=== PATIENT | male | born 1935 | race Caucasian/White ===

== ENCOUNTER 2018-04-04 16:15 | Emergency (ER) | payer MEDICARE, OTHER ==
[~2018-04-04] VITALS: Ht 1670.2 cm; Wt 76.8 kg
[2018-04-04 16:52] LABS: BASOPHILS % (AUTO) 0.2 % (0-1); EOSINOPHILS # (AUTO) 0.1 X10'3 (0-0.9); EOSINOPHILS % (AUTO) 1.4 % (0-6); HEMATOCRIT 40.3 % (42.0-52.0); HEMOGLOBIN 14.2 g/dl (14.0-17.9); LYMPHOCYTES # (AUTO) 1.6 X10'3 (1.1-4.8); LYMPHOCYTES % (AUTO) 17.7 % (21-51); MEAN CORPUSCULAR HEMOGLOBIN 31.8 PG (27.0-31.0); MEAN CORPUSCULAR HGB CONC 35.2 % (33.0-36.5); MEAN CORPUSCULAR VOLUME 90.5 FL (78-98); MEAN PLATELET VOLUME 7.8 FL (7.4-10.4); MONOCYTES # (AUTO) 0.5 X10'3 (0-0.9); NEUTROPHILS # (AUTO) 6.7 X10'3 (1.8-7.7); NEUTROPHILS % (AUTO) 74.7 % (42-75); PLATELET COUNT 192 X10'3 (140-440); RED BLOOD COUNT 4.46 X10'6 (4.70-6.10); RED CELL DISTRIBUTION WIDTH 13.7 % (11.5-14.5)
[2018-04-04 17:04] LABS: ALANINE AMINOTRANSFERASE 24 U/L (12-78); ALBUMIN 3.9 G/DL (3.4-5.0); ALBUMIN/GLOBULIN RATIO 1.1 (1.1-1.5); ALKALINE PHOSPHATASE 84 IU/L (46-116); ANION GAP 14 (8-16); ASPARTATE AMINO TRANSFERASE 16 U/L (10-37); BILIRUBIN,TOTAL 0.8 MG/DL (0.1-1.0); BLOOD UREA NITROGEN 39 MG/DL (7-18); BUN/CREATININE RATIO 39.4 (5.4-32.0); CALCIUM 9.3 MG/DL (8.5-10.1); CHLORIDE 108 MMOL/L (99-107); CREATININE 0.99 MG/DL (0.60-1.10); GLUCOSE 100 MG/DL (70-104); POTASSIUM 3.5 MMOL/L (3.5-5.1); SODIUM 143 MMOL/L (135-145); TOTAL CARBON DIOXIDE 21.5 MMOL/L (24-32); TOTAL PROTEIN 7.3 G/DL (6.4-8.2); eGFR 73 ML/MIN
[2018-04-04 17:15] LABS: ETHANOL < 0.010 GM/DL (0.0-0.010); MAGNESIUM 2.1 MG/DL (1.5-2.4)
[2018-04-04 19:31] LABS: URINE AMPHETAMINE SCREEN NEGATIVE (Neg); URINE BARBITUATE SCREEN NEGATIVE (Neg); URINE BENZODIAZEPINES SCREEN NEGATIVE (Neg); URINE CANNABINOID SCREEN NEGATIVE (Neg); URINE COCAINE SCREEN NEGATIVE (Neg); URINE METHADONE SCREEN NEGATIVE (Neg); URINE OPIATE SCREEN NEGATIVE (Neg); URINE PHENCYCLIDINE SCREEN NEGATIVE (Neg)
[2018-04-04 19:50] LABS: CLARITY,URINE CLEAR (Clear); COLOR,URINE YELLOW (Yellow); PH,URINE 5.5 (4.8-8.0); PROTEIN,URINE TRACE mg/dl (Neg); UA COLLECTION TYPE CLN CATCH MIDSTREAM
[2018-04-04 19:51] LABS: GLUCOSE, URINE NEGATIVE (Neg); NITRITES, URINE NEGATIVE (Neg)
[2018-04-04 19:52] LABS: BACTERIA,URINE NONE SEEN /HPF (Neg); RBC,URINE 0-2 /HPF (0-2); SQUAMOUS EPITHELIAL CELL,UR NONE SEEN /LPF (FEW); WBC,URINE 0-4 /HPF (0-4)
[2018-04-04 20:09] LABS: OCCULT BLOOD,URINE NEGATIVE (Neg); UROBILINOGEN,URINE 0.2 E.U/dL (0.2-1.0)
[2018-04-04 20:10] LABS: KETONES,URINE 15 mg/dl (Neg); LEUKOCYTE ESTERASE ,URINE NEGATIVE (Neg)
[2018-04-04] MEDS ORDERED: cloNIDine 0.1 mg tablet PO ONE (23:05)
[2018-04-05 05:47] VITALS: BP 157/75
[2018-04-06] MEDS ORDERED: NO HOME MEDS (15:26)
== END 2018-04-05 15:54 ==
LOC: ER 16:17
DX: R44.3 Hallucinations, unspecified (principal); R41.82 Altered mental status, unspecified; Z73.6 Limitation of activities due to disability; Z88.0 Allergy status to penicillin; Z60.2 Problems related to living alone
CPT/HCPCS: 36415; 70450; 71045; 80053; 80305; 80320; 81001; 83735; 84443; 84484; 85025; 93005; 99285

== ENCOUNTER 2018-04-05 13:30 | Inpatient (IN) | payer MEDICARE, OTHER ==
[~2018-04-05] VITALS: Ht 175.3 cm; Wt 59.9 kg
[2018-04-05] MEDS ORDERED: pneumococcal 23-VAL P-sac vacc 25 mcg/0.5ml vial IMVAC ONE (17:00)
[2018-04-05] MEDS ORDERED: magnesium hydroxide 30ml (MOM) UD suspension PO PRN (17:40)
[2018-04-05] MEDS ORDERED: acetaminophen 325mg tablet PO PRN ×2 (17:40)
[2018-04-05] MEDS ORDERED: mag hydrox/Alum hydrox/simeth 30ml oral suspension PO PRN (17:40)
[2018-04-05 20:00] VITALS: BP 166/73
[2018-04-06 08:00] VITALS: BP 169/93
[2018-04-06 08:27] LABS: CHOL/HDL RATIO 2.9 (0.00-4.99); CHOLESTEROL 144 MG/DL (0-200); HDL CHOLESTEROL 50 MG/DL (35-60); LDL CHOLESTEROL 85 MG/DL (50-100); TRIGLYCERIDES 84 MG/DL (20-135)
[2018-04-06 08:34] LABS: HEMOGLOBIN A1C 5.5 % (4.5-6.2)
[2018-04-06] MEDS ORDERED: NO HOME MEDS (15:26)
[2018-04-06] MEDS: lisinopril 20mg tablet PO SCH (19:15)
[2018-04-06 20:56] VITALS: BP 173/77
[2018-04-06 21:00] VITALS: BP 140/60
[2018-04-07 08:00] VITALS: BP 153/77
[2018-04-07] MEDS: lisinopril 20mg tablet PO SCH (08:17)
[2018-04-07 19:00] VITALS: BP 130/61
[2018-04-08 08:00] VITALS: BP 155/75
[2018-04-08] MEDS: lisinopril 20mg tablet PO SCH (08:18)
[2018-04-08 19:00] VITALS: BP 193/86
[2018-04-08 19:30] VITALS: BP 145/70
[2018-04-08] MEDS: latanoprost 0.005% 2.5ml ophthalmic drops EACHEYE SCH (20:53)
[2018-04-09] MEDS: lisinopril 20mg tablet PO SCH (07:24)
[2018-04-09 08:00] VITALS: BP 171/81
[2018-04-09 19:30] VITALS: BP 182/75
[2018-04-09] MEDS: cloNIDine 0.1 mg tablet PO PRN (20:24)
[2018-04-09] MEDS: latanoprost 0.005% 2.5ml ophthalmic drops EACHEYE SCH (20:25)
[2018-04-09 20:41] LABS: ALANINE AMINOTRANSFERASE 27 U/L (12-78); ALKALINE PHOSPHATASE 72 IU/L (46-116); ANION GAP 7 (8-16); ASPARTATE AMINO TRANSFERASE 11 U/L (10-37); BILIRUBIN,TOTAL 0.3 MG/DL (0.1-1.0); BLOOD UREA NITROGEN 32 MG/DL (7-18); BUN/CREATININE RATIO 30.8 (5.4-32.0); CALCIUM 8.6 MG/DL (8.5-10.1); CHLORIDE 108 MMOL/L (99-107); CREATININE 1.04 MG/DL (0.60-1.10); GLUCOSE 93 MG/DL (70-104); SODIUM 141 MMOL/L (135-145); TOTAL CARBON DIOXIDE 25.6 MMOL/L (24-32); TOTAL PROTEIN 6.1 G/DL (6.4-8.2); eGFR 69 ML/MIN
[2018-04-10 08:00] VITALS: BP 124/72
[2018-04-10] MEDS: lisinopril 20mg tablet PO SCH (08:01)
[2018-04-10 20:21] VITALS: BP 167/79
[2018-04-10] MEDS: latanoprost 0.005% 2.5ml ophthalmic drops EACHEYE SCH (20:43)
[2018-04-11 08:00] VITALS: BP 138/68
[2018-04-11] MEDS: lisinopril 20mg tablet PO SCH (08:13)
[2018-04-11 20:00] VITALS: BP 148/80
[2018-04-11] MEDS: latanoprost 0.005% 2.5ml ophthalmic drops EACHEYE SCH (21:01)
[2018-04-12 08:00] VITALS: BP 168/78
[2018-04-12] MEDS: lisinopril 20mg tablet PO SCH (08:01)
[2018-04-12 20:00] VITALS: BP 136/67
[2018-04-12] MEDS: latanoprost 0.005% 2.5ml ophthalmic drops EACHEYE SCH (21:25)
[2018-04-13 07:58] VITALS: BP 144/73
[2018-04-13] MEDS: lisinopril 20mg tablet PO SCH (08:00)
[2018-04-13 20:00] VITALS: BP 128/62
[2018-04-13] MEDS: latanoprost 0.005% 2.5ml ophthalmic drops EACHEYE SCH (21:16)
[2018-04-14 08:00] VITALS: BP 158/88
[2018-04-14 08:33] LABS: BASOPHILS % (AUTO) 0.4 % (0-1); EOSINOPHILS # (AUTO) 0.2 X10'3 (0-0.9); EOSINOPHILS % (AUTO) 2.7 % (0-6); HEMATOCRIT 39.3 % (42.0-52.0); LYMPHOCYTES # (AUTO) 2.1 X10'3 (1.1-4.8); LYMPHOCYTES % (AUTO) 26.7 % (21-51); MEAN CORPUSCULAR HEMOGLOBIN 33.8 PG (27.0-31.0); MEAN CORPUSCULAR HGB CONC 35.7 % (33.0-36.5); MEAN CORPUSCULAR VOLUME 94.7 FL (78-98); MONOCYTES # (AUTO) 0.7 X10'3 (0-0.9); MONOCYTES % (AUTO) 9.1 % (2-12); NEUTROPHILS # (AUTO) 4.9 X10'3 (1.8-7.7); NEUTROPHILS % (AUTO) 61.1 % (42-75); PLATELET COUNT 192 X10'3 (140-440); RED BLOOD COUNT 4.15 X10'6 (4.70-6.10); RED CELL DISTRIBUTION WIDTH 13.8 % (11.5-14.5)
[2018-04-14 08:54] LABS: ALANINE AMINOTRANSFERASE 26 U/L (12-78); ALBUMIN 3.1 G/DL (3.4-5.0); ALKALINE PHOSPHATASE 73 IU/L (46-116); ANION GAP 4 (8-16); ASPARTATE AMINO TRANSFERASE 14 U/L (10-37); BILIRUBIN,TOTAL 0.4 MG/DL (0.1-1.0); BLOOD UREA NITROGEN 35 MG/DL (7-18); CALCIUM 8.8 MG/DL (8.5-10.1); CHLORIDE 108 MMOL/L (99-107); CREATININE 0.92 MG/DL (0.60-1.10); GLUCOSE 90 MG/DL (70-104); POTASSIUM 4.3 MMOL/L (3.5-5.1); SODIUM 141 MMOL/L (135-145); TOTAL CARBON DIOXIDE 28.9 MMOL/L (24-32); TOTAL PROTEIN 6.3 G/DL (6.4-8.2); eGFR 79 ML/MIN
[2018-04-14] MEDS: amLODIPine 2.5mg tablet PO SCH (08:55)
[2018-04-14] MEDS: lisinopril 20mg tablet PO SCH (08:55)
[2018-04-14 20:00] VITALS: BP 120/59
[2018-04-14] MEDS: latanoprost 0.005% 2.5ml ophthalmic drops EACHEYE SCH (20:12)
[2018-04-14] MEDS: cloNIDine 0.1 mg tablet PO PRN (20:12)
[2018-04-15 08:00] VITALS: BP 131/64
[2018-04-15] MEDS: amLODIPine 2.5mg tablet PO SCH (08:11)
[2018-04-15] MEDS: lisinopril 20mg tablet PO SCH (08:11)
[2018-04-15 20:05] VITALS: BP 142/64
[2018-04-15] MEDS: latanoprost 0.005% 2.5ml ophthalmic drops EACHEYE SCH (20:09)
[2018-04-16] MEDS: amLODIPine 2.5mg tablet PO SCH (07:56)
[2018-04-16] MEDS: lisinopril 20mg tablet PO SCH (07:56)
[2018-04-16 08:00] VITALS: BP 135/77
[2018-04-16 11:43] LABS: ALANINE AMINOTRANSFERASE 42 U/L (12-78); ALBUMIN 3.1 G/DL (3.4-5.0); ALBUMIN/GLOBULIN RATIO 0.9 (1.1-1.5); ALKALINE PHOSPHATASE 72 IU/L (46-116); ANION GAP 5 (8-16); ASPARTATE AMINO TRANSFERASE 22 U/L (10-37); BILIRUBIN,TOTAL 0.4 MG/DL (0.1-1.0); BLOOD UREA NITROGEN 37 MG/DL (7-18); BUN/CREATININE RATIO 40.2 (5.4-32.0); CALCIUM 8.7 MG/DL (8.5-10.1); CHLORIDE 106 MMOL/L (99-107); CREATININE 0.92 MG/DL (0.60-1.10); GLUCOSE 66 MG/DL (70-104); POTASSIUM 4.1 MMOL/L (3.5-5.1); SODIUM 139 MMOL/L (135-145); TOTAL CARBON DIOXIDE 27.9 MMOL/L (24-32); TOTAL PROTEIN 6.4 G/DL (6.4-8.2); eGFR 79 ML/MIN
[2018-04-16 19:27] VITALS: BP 129/66
[2018-04-16] MEDS: latanoprost 0.005% 2.5ml ophthalmic drops EACHEYE SCH (20:16)
[2018-04-17] MEDS: amLODIPine 2.5mg tablet PO SCH (07:34)
[2018-04-17] MEDS: lisinopril 20mg tablet PO SCH (07:34)
[2018-04-17 08:00] VITALS: BP 146/77
[2018-04-17 19:51] VITALS: BP 158/68
[2018-04-17] MEDS: latanoprost 0.005% 2.5ml ophthalmic drops EACHEYE SCH (21:03)
[2018-04-18 08:00] VITALS: BP 141/83
[2018-04-18] MEDS: lisinopril 20mg tablet PO SCH (08:36)
[2018-04-18] MEDS: amLODIPine 2.5mg tablet PO SCH (08:36)
[2018-04-18 20:04] VITALS: BP 155/72
[2018-04-18] MEDS: latanoprost 0.005% 2.5ml ophthalmic drops EACHEYE SCH (21:09)
[2018-04-19 08:00] VITALS: BP 136/76
[2018-04-19] MEDS: lisinopril 20mg tablet PO SCH (08:10)
[2018-04-19] MEDS: amLODIPine 2.5mg tablet PO SCH (08:10)
[2018-04-19 19:57] VITALS: BP 161/68
[2018-04-19] MEDS: latanoprost 0.005% 2.5ml ophthalmic drops EACHEYE SCH (21:12)
[2018-04-20] MEDS: amLODIPine 5mg tablet PO SCH (08:34)
[2018-04-20] MEDS: lisinopril 20mg tablet PO SCH (08:34)
[2018-04-20 08:50] VITALS: BP 135/75
[2018-04-20 19:15] VITALS: BP 105/69
[2018-04-20] MEDS: latanoprost 0.005% 2.5ml ophthalmic drops EACHEYE SCH (20:05)
[2018-04-21] MEDS: amLODIPine 5mg tablet PO SCH (08:31)
[2018-04-21] MEDS: lisinopril 20mg tablet PO SCH (08:32)
[2018-04-21 08:35] VITALS: BP 152/82
[2018-04-21] MEDS ORDERED: AMLO5TAB16 PO (13:20)
[2018-04-21] MEDS ORDERED: LISI-600 PO (13:20)
[2018-04-21] MEDS ORDERED: XAL0.005OS EACHEYE (13:20)
== END 2018-04-21 14:54 | disposition home or self-care (01) | DRG 880 ==
LOC: ADULT MH 13:30
PROVIDERS: ADMIT Psychiatry & Neurology Psychiatry; ATTEND Psychiatry & Neurology Psychiatry
DX: F05 Delirium due to known physiological condition (principal); G93.40 Encephalopathy, unspecified; Z68.1 Body mass index [BMI] 19.9 or less, adult; F32.9 Major depressive disorder, single episode, unspecified; R45.851 Suicidal ideations; G31.84 Mild cognitive impairment of uncertain or unknown etiology; I10 Essential (primary) hypertension; H40.9 Unspecified glaucoma; F41.9 Anxiety disorder, unspecified; H54.7 Unspecified visual loss; Z88.0 Allergy status to penicillin; Z79.899 Other long term (current) drug therapy; Z80.6 Family history of leukemia
CPT/HCPCS: 36415; 70544; 70551; 80053; 80061; 82140; 83036; 85025; 87070; 90732

== ENCOUNTER 2018-11-08 09:46 | Emergency (ER) | payer MEDICARE, OTHER ==
[~2018-11-08] VITALS: Ht 175.3 cm; Wt 59.0 kg
[~2018-11-08 09:46] MED LIST: AMLO5TAB16 PO; LISI-600 PO; XAL0.005OS EACHEYE
[2018-11-08 09:56] VITALS: BP 114/78
[2018-11-08 12:59] LABS: BASOPHILS % (AUTO) 0.4 % (0-1); EOSINOPHILS % (AUTO) 0.4 % (0-6); HEMATOCRIT 42.9 % (42.0-52.0); HEMOGLOBIN 14.9 g/dl (14.0-17.9); LYMPHOCYTES # (AUTO) 1.3 X10'3 (1.1-4.8); MEAN CORPUSCULAR HEMOGLOBIN 32.1 PG (27.0-31.0); MEAN CORPUSCULAR HGB CONC 34.7 g/dL (33.0-36.5); MEAN CORPUSCULAR VOLUME 92.5 FL (78-98); MONOCYTES # (AUTO) 0.7 X10'3 (0-0.9); MONOCYTES % (AUTO) 8.7 % (2-12); NEUTROPHILS # (AUTO) 6.4 X10'3 (1.8-7.7); NEUTROPHILS % (AUTO) 75.5 % (42-75); PLATELET COUNT 204 X10'3 (140-440); RED BLOOD COUNT 4.64 X10'6 (4.70-6.10); RED CELL DISTRIBUTION WIDTH 13.7 % (11.5-14.5); WHITE BLOOD COUNT 8.4 X10'3 (4.5-11.0)
[2018-11-08 13:08] LABS: CLARITY,URINE CLEAR (Clear); COLOR,URINE YELLOW (Yellow); GLUCOSE, URINE NEGATIVE (Neg); KETONES,URINE NEGATIVE (Neg); LEUKOCYTE ESTERASE ,URINE NEGATIVE (Neg); NITRITES, URINE NEGATIVE (Neg); OCCULT BLOOD,URINE NEGATIVE (Neg); PROTEIN,URINE NEGATIVE (Neg); UROBILINOGEN,URINE 0.2 E.U/dL (0.2-1.0)
[2018-11-08 13:13] LABS: UA COLLECTION TYPE CLN CATCH MIDSTREAM
[2018-11-08 13:13] LABS: ALANINE AMINOTRANSFERASE 19 U/L (12-78); ALBUMIN 3.2 G/DL (3.4-5.0); ALBUMIN/GLOBULIN RATIO 0.9 (1.1-1.5); ALKALINE PHOSPHATASE 110 IU/L (46-116); ANION GAP 7 (8-16); ASPARTATE AMINO TRANSFERASE 15 U/L (10-37); BILIRUBIN,TOTAL 0.4 MG/DL (0.1-1.0); BLOOD UREA NITROGEN 27 MG/DL (7-18); BUN/CREATININE RATIO 27.8 (5.4-32.0); CALCIUM 8.7 MG/DL (8.5-10.1); CHLORIDE 107 MMOL/L (99-107); CREATININE 0.97 MG/DL (0.60-1.10); GLUCOSE 117 MG/DL (70-104); POTASSIUM 3.8 MMOL/L (3.5-5.1); SODIUM 143 MMOL/L (135-145); TOTAL PROTEIN 6.7 G/DL (6.4-8.2); eGFR 74 ML/MIN
[2018-11-08] MEDS ORDERED: OLAN5TAB3 PO (13:32)
== END 2018-11-08 14:10 | disposition home or self-care (01) ==
LOC: ER 09:46
DX: F03.90 Unspecified dementia, unspecified severity, without behavioral disturbance, psychotic disturbance, mood disturbance, and anxiety (principal); Z88.0 Allergy status to penicillin; Z79.899 Other long term (current) drug therapy
CPT/HCPCS: 36415; 80053; 81003; 85025; 99283

== ENCOUNTER 2018-11-11 09:28 | Emergency (ER) | payer MEDICARE, OTHER ==
[~2018-11-11] VITALS: Ht 175.3 cm; Wt 54.5 kg
[~2018-11-11 09:28] MED LIST changes: +OLAN5TAB3 PO
[2018-11-11 09:31] VITALS: BP 160/85
--- NOTE | 2018-11-11 09:45 | NUR ---
TELE-PSYCH INITIATED
[2018-11-11] MEDS ORDERED: RISP0.5T74 PO (11:25)
[2018-11-11] MEDS ORDERED: RISP1TAB13 PO (11:25)
[2018-11-11] MEDS ORDERED: ZOL50T PO (11:26)
== END 2018-11-11 11:55 | disposition home or self-care (01) ==
LOC: ER 09:29
DX: F03.90 Unspecified dementia, unspecified severity, without behavioral disturbance, psychotic disturbance, mood disturbance, and anxiety (principal); R45.1 Restlessness and agitation; Z98.890 Other specified postprocedural states; Z79.899 Other long term (current) drug therapy; Z88.0 Allergy status to penicillin
CPT/HCPCS: 99284

== ENCOUNTER 2020-12-31 09:44 | Emergency (ER) | payer MEDICARE, MEDICAID ==
[~2020-12-31] VITALS: Ht 177.8 cm; Wt 68.4 kg
[~2020-12-31 09:44] MED LIST changes: +ACET-1008 PO; -AMLO5TAB16 PO; +BISA10SU62 RC; +BRIM5DRO EACHEYE; +CALC355O3 PO; -LISI-600 PO; +LISI20TA28 PO; +MAGN400O6 PO; +MELA1TAB28 PO; +NA P133E4 RC; -OLAN5TAB3 PO; +POLY17PO10 PO; +SENN-223 PO; +TIMO5DRO32 EACHEYE; +TRAZ150T78 PO
[2020-12-31] MEDS ORDERED: levoFLOXACIN-Levaquin 750MG/D5 150 ML IV ONE (10:05)
[2020-12-31] MEDS ORDERED: normal saline 1000ML IV soln IV ONE (10:05)
[2020-12-31] MEDS ORDERED: methylPREDNISolone sod succ 125mg/2ml vial IV ONE (10:05)
[2020-12-31] MEDS ORDERED: albuterol 2.5 MG/3 ML nebule CONTNEB PRN (10:05)
[2020-12-31 10:28] LABS: ABG BASE EXCESS -0.3 mmol/L (-2.0-2.0); ABG OXYGEN SATURATION 80.9 % (94-97); ABG PCO2 (T) 29.8 mmHg (35.0-48.0); ABG PO2 (T) 41.2 mmHg (75.0-100.0); ALLEN'S TEST POSITIVE; FCOHb 0.8 % (0.0-3.9); FLOW 5 L/min; FMetHb 0.1 % (0.0-1.5); FO2Hb 80.2 % (94-97); TOTAL HEMOGLOBIN 13.9 G/dl (14.0-18.0)
[2020-12-31 11:06] LABS: BASOPHILS % (AUTO) 0.1 % (0-1); EOSINOPHILS % (AUTO) 0.1 % (0-6); HEMATOCRIT 38.5 % (42.0-52.0); HEMOGLOBIN 12.9 g/dl (14.0-17.9); LYMPHOCYTES # (AUTO) 0.9 X10'3 (1.1-4.8); LYMPHOCYTES % (AUTO) 7.4 % (21-51); MEAN CORPUSCULAR HEMOGLOBIN 29.9 PG (27.0-31.0); MEAN CORPUSCULAR HGB CONC 33.4 g/dL (33.0-36.5); MEAN CORPUSCULAR VOLUME 89.4 FL (78-98); MEAN PLATELET VOLUME 7.1 FL (7.4-10.4); MONOCYTES # (AUTO) 1.5 X10'3 (0-0.9); MONOCYTES % (AUTO) 12.1 % (2-12); NEUTROPHILS # (AUTO) 10.1 X10'3 (1.8-7.7); NEUTROPHILS % (AUTO) 80.3 % (42-75); PLATELET COUNT 254 X10'3 (140-440); RED CELL DISTRIBUTION WIDTH 13.7 % (11.5-14.5); WHITE BLOOD COUNT 12.5 X10'3 (4.5-11.0)
[2020-12-31 11:23] LABS: ALANINE AMINOTRANSFERASE 13 U/L (12-78); ALBUMIN/GLOBULIN RATIO 0.5 (1.1-1.5); ALKALINE PHOSPHATASE 70 IU/L (46-116); ANION GAP 10 (8-16); BILIRUBIN,TOTAL 0.4 MG/DL (0.1-1.0); BLOOD UREA NITROGEN 34 MG/DL (7-18); BUN/CREATININE RATIO 32.7 (5.4-32.0); CALCIUM 8.2 MG/DL (8.5-10.1); CHLORIDE 112 MMOL/L (99-107); CREATININE 1.04 MG/DL (0.60-1.10); GLUCOSE 104 MG/DL (70-104); POTASSIUM 3.5 MMOL/L (3.5-5.1); SODIUM 146 MMOL/L (135-145); TOTAL CARBON DIOXIDE 24.2 MMOL/L (24-32); TOTAL PROTEIN 6.2 G/DL (6.4-8.2); eGFR 68 ML/MIN
[2020-12-31 11:41] LABS: ASPARTATE AMINO TRANSFERASE 17 U/L (10-37)
[2020-12-31] MEDS ORDERED: levoFLOXACIN-Levaquin 500mg/D5 150 ML IV ONE (12:20)
--- NOTE | 2020-12-31 13:54 | NUR ---
Advised that pt will be returning to [facility] where he is a LT resident on comfort care. Spoke w/ NOEL Alonzo at [facility] and they are aware of the change in status. They can take him back anytime today. Called ER and spoke w/ EV [place], he already has someone working on transportation back to [facility]. Pt will require [facility] due to pt's high O2 demands. He will call me if there is anything else they might need.
[2020-12-31 14:32] VITALS: BP 131/113
== END 2020-12-31 14:35 ==
LOC: ER 09:45
DX: J96.21 Acute and chronic respiratory failure with hypoxia (principal); Z20.822 Contact with and (suspected) exposure to COVID-19; J69.0 Pneumonitis due to inhalation of food and vomit; G93.41 Metabolic encephalopathy; I50.9 Heart failure, unspecified; I11.0 Hypertensive heart disease with heart failure; F03.90 Unspecified dementia, unspecified severity, without behavioral disturbance, psychotic disturbance, mood disturbance, and anxiety; G89.29 Other chronic pain; F41.9 Anxiety disorder, unspecified; Z98.890 Other specified postprocedural states; Z88.0 Allergy status to penicillin; Z79.899 Other long term (current) drug therapy
CPT/HCPCS: 36415; 36600; 71045; 80053; 82803; 83605; 83880; 84145; 84484; 85018; 85025; 87040; 87635; 93005; 94640; 94644; 96361; 96365; 96375; 99291; C9803; J1956; J2930; J7030; 94760; A7015